=== PATIENT | male | born 1970 | race Two or more races ===

== ENCOUNTER 2018-07-20 15:09 | Outpatient (CLI) | payer OTHER | END 2018-07-20 18:00 | disposition home or self-care (01) | LOC: RAD 501 15:09 | DX: M25.561 Pain in right knee (principal); M23.8X1 Other internal derangements of right knee ==

== ENCOUNTER 2018-07-21 09:22 | Outpatient (CLI) | payer OTHER | END 2018-07-21 15:14 | disposition home or self-care (01) | LOC: MRI 09:22 | DX: M25.561 Pain in right knee (principal); M23.91 Unspecified internal derangement of right knee | CPT/HCPCS: 73721 ==

== ENCOUNTER → 2018-07-23 12:17 | Outpatient (CLI) | payer OTHER | END | disposition home or self-care (01) | LOC: LAB 12:17 | DX: D64.89 Other specified anemias (principal); E88.89 Other specified metabolic disorders; D68.8 Other specified coagulation defects; N39.0 Urinary tract infection, site not specified; A49.02 Methicillin resistant Staphylococcus aureus infection, unspecified site; Z76.89 Persons encountering health services in other specified circumstances; I49.8 Other specified cardiac arrhythmias ==

== ENCOUNTER 2018-08-02 07:45 | Day surgery (SDC) | payer OTHER | END 2018-08-02 22:00 | disposition home or self-care (01) | LOC: CIR.AMB 07:45 | DX: S83.211A Bucket-handle tear of medial meniscus, current injury, right knee, initial encounter (principal); S83.511D Sprain of anterior cruciate ligament of right knee, subsequent encounter; M22.41 Chondromalacia patellae, right knee; M24.461 Recurrent dislocation, right knee; M23.261 Derangement of other lateral meniscus due to old tear or injury, right knee ==

== ENCOUNTER 2018-09-01 16:38 | Outpatient (CLI) | payer OTHER | END 2018-09-01 16:56 | disposition home or self-care (01) | LOC: RAD 16:38 | DX: M25.561 Pain in right knee (principal) ==

== ENCOUNTER 2018-10-08 11:28 | Outpatient (CLI) | payer OTHER ==
[~2018-10-08 11:28] MED LIST: DICLOFENAC POTA50 MG PO
== END 2018-10-08 11:29 | disposition home or self-care (01) ==
LOC: SONOGRAMA 11:28
DX: M25.561 Pain in right knee (principal)

== ENCOUNTER 2018-12-06 11:06 | Outpatient (CLI) | payer OTHER | END 2018-12-06 11:21 | disposition home or self-care (01) | LOC: RAD 11:06 | DX: G90.521 Complex regional pain syndrome I of right lower limb (principal); S83.511D Sprain of anterior cruciate ligament of right knee, subsequent encounter; S83.211A Bucket-handle tear of medial meniscus, current injury, right knee, initial encounter ==

== ENCOUNTER 2019-06-10 11:25 | Outpatient (CLI) | payer OTHER | END 2019-06-10 11:28 | disposition home or self-care (01) | LOC: MRI 11:25 | DX: M25.561 Pain in right knee (principal) | CPT/HCPCS: 73718 ==

== ENCOUNTER 2019-09-28 13:17 | Outpatient (CLI) | payer OTHER | END 2019-09-28 13:25 | disposition home or self-care (01) | LOC: LAB 13:17 | DX: D64.89 Other specified anemias (principal); E88.89 Other specified metabolic disorders; D68.8 Other specified coagulation defects; N39.0 Urinary tract infection, site not specified; Z22.322 Carrier or suspected carrier of Methicillin resistant Staphylococcus aureus; Z76.89 Persons encountering health services in other specified circumstances; I49.8 Other specified cardiac arrhythmias ==

== ENCOUNTER 2019-10-05 11:54 | Outpatient (CLI) | payer OTHER | END 2019-10-05 12:01 | disposition home or self-care (01) | LOC: EKG 11:54 | DX: I49.8 Other specified cardiac arrhythmias (principal) ==

== ENCOUNTER 2019-10-14 08:15 | Day surgery (SDC) | payer OTHER | END 2019-10-14 18:30 | disposition home or self-care (01) | LOC: CIR.AMB 08:15 | DX: M12.261 Villonodular synovitis (pigmented), right knee (principal); M22.11 Recurrent subluxation of patella, right knee; M22.41 Chondromalacia patellae, right knee ==

== ENCOUNTER → 2020-06-06 | Outpatient (CLI) | payer OTHER | END | disposition home or self-care (01) | LOC: SONOGRAMA 08:48 | PROVIDERS: ATTEND Specialist | DX: K40.91 Unilateral inguinal hernia, without obstruction or gangrene, recurrent (principal) ==

== ENCOUNTER 2020-06-07 13:10 | Outpatient (CLI) | payer OTHER | END 2020-06-07 13:13 | disposition home or self-care (01) | LOC: TOM 13:10 | PROVIDERS: ATTEND Specialist | DX: K40.91 Unilateral inguinal hernia, without obstruction or gangrene, recurrent (principal) ==

== ENCOUNTER 2022-08-05 07:24 | Day surgery (SDC) | payer OTHER ==
[~2022-08-05] VITALS: Ht 180.3 cm; Wt 61.2 kg
== END 2022-08-05 21:00 | disposition home or self-care (01) ==
LOC: CIR.AMB 07:24
PROVIDERS: ATTEND Specialist
DX: K41.90 Unilateral femoral hernia, without obstruction or gangrene, not specified as recurrent (principal); Z20.822 Contact with and (suspected) exposure to COVID-19

== ENCOUNTER 2024-11-10 12:15 | Outpatient (CLI) | payer OTHER | END 2024-11-10 12:30 | disposition home or self-care (01) | LOC: SONOGRAMA 12:15 | PROVIDERS: ATTEND Specialist | DX: N50.811 Right testicular pain (principal) ==